=== PATIENT | female | born 2000 | race African-American/Black ===

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

== ENCOUNTER 2021-04-02 15:44 | Emergency (ER) | payer MEDICAID ==
[~2021-04-02] VITALS: Ht 162.6 cm; Wt 61.2 kg
--- NOTE | 2021-04-02 16:02 | NUR ---
Dr Thompson seen and examined the pt.
[2021-04-02 16:41] VITALS: BP 117/65
--- NOTE | 2021-04-02 16:41 | NUR ---
Patient discharged to home in stable condition. Written and verbal after care instructions given. Patient verbalizes understanding of instructions. Stressed follow up or return to ER for worsening s/s.
== END 2021-04-02 16:42 | disposition home or self-care (01) ==
LOC: ER 15:48
DX: S90.122A Contusion of left lesser toe(s) without damage to nail, initial encounter (principal); W22.8XXA Striking against or struck by other objects, initial encounter; Y92.89 Other specified places as the place of occurrence of the external cause; J45.909 Unspecified asthma, uncomplicated
CPT/HCPCS: 73660; A4663